=== PATIENT | male | born 1960 | race Caucasian/White ===

== ENCOUNTER 2019-07-23 11:53 | Observation (INO) | payer BC ==
[2019-07-22 12:47] LABS: BASOPHILS % 0.4 % (0.0-1.0); EOSINOPHILS % 0.2 % (0.0-6.0); HEMATOCRIT 45.1 % (38.2-49.6); HEMOGLOBIN 15.8 g/dL (14.0-18.0); LYMPHOCYTES # (AUTO) 1.8 (1.0-3.2); MEAN CORPUSCULAR VOLUME 94.2 fL (81-99); MONOCYTES # (AUTO) 0.9 (0.2-0.8); MONOCYTES % 9.1 % (4.4-11.3); NEUTROPHILS # (AUTO) 7.2 (2.1-6.9); NEUTROPHILS % 71.4 % (38.7-80.0); PLATELET COUNT 216 x10e3/uL (140-360); RED BLOOD COUNT 4.79 x10e6/uL (4.3-5.7); RED CELL DISTRIBUTION WIDTH 13.3 % (11.7-14.4)
[2019-07-22 12:55] LABS: INR 0.97; PARTIAL THROMBOPLASTIN TIME 26.9 seconds (23.8-35.5); PROTHROMBIN TIME 13.4 seconds (11.9-14.5)
[2019-07-22 12:59] LABS: BLOOD UREA NITROGEN 29 mg/dL (7-26); BUN/CREATININE RATIO 35 (6-25); CALCIUM 9.4 mg/dL (8.4-10.2); CARBON DIOXIDE 23 mmol/L (22-29); CHLORIDE 106 mmol/L (98-107); CREATININE, SERUM 0.84 mg/dL (0.72-1.25); EST GLOMERULAR FILTRATION RATE > 60 ML/MIN (60-); GLUCOSE 104 mg/dL (74-118); SODIUM 136 mmol/L (136-145)
--- NOTE | 2019-07-22 13:27 | Diagnostic Imaging Report ---
EXAMINATION: CHEST 2 VIEWS INDICATION: Pre-operative COMPARISON: None FINDINGS: LINES/TUBES:None LUNGS:The lungs are well-inflated. No focal consolidation or pulmonary edema. PLEURA:No pleural effusion or pneumothorax. MEDIASTINUM:The cardiomediastinal silhouette appears normal in size and shape. BONES/SOFT TISSUES:No acute osseous injury. ABDOMEN:No free air under the diaphragm. IMPRESSION: No focal pneumonia or pulmonary edema. Signed by: Joshua Mon MD on 07/22/2019 1:23 PM
[~2019-07-23] VITALS: Ht 193 cm; Wt 109.8 kg
[~2019-07-23 11:53] MED LIST: ACETAMINOPHEN 1000 MG/100 ML 100 ML IV ONE; ASPIR 8181 MG PO; BACITRACIN 50,000 UNIT VIAL ONE; BUPIVACAINE 0.5%/EPI 30 ML SDV INJ ONE; BUPROPION HCL75 MG PO; CO Q-10100 MG PO; CRESTOR10 MG PO; CYMBALTA30 MG PO; FISH OIL 1,0001 EAC2 PO; GABAPENTIN300 MG PO; IBUPROFEN 800MG/ 250ML 250 ML IV ONE; LIDOCAINE HCL (LTA) 4 ML SOLN ONE; LISINOPRIL10 MG PO; NAPROXEN250 MG PO; THROMBIN FOR SOLN 5,000 UNIT VIAL ONE; TIZANIDINE HCL4 MG PO; TYLENOL PO; ULTRAM 50MG50 MG PO; VANCOMYCIN 1GM/NS 250 ML 250 ML ONE
--- OUTSIDE RECORDS SUMMARY | 2019-07-23 11:58 | XMS REPORT ---
Author Author [facility] Address Unknown Phone Unavailable Care Team Providers Care Boatbuilder Supervisor Name Role Phone EMELIA MARLOW Unavailable Unavailable Myron HERNANDEZ Unavailable Unavailable Problems This patient has no known problems. Allergies, Adverse Reactions, Alerts This patient has no known allergies or adverse reactions. Medications This patient has no known medications. Results Test Description Test Time Test Comments Text Results Atomic Results Result Comments CHEST 2 VIEWS 2019-07-22 13:23:00 [facility] [address] [address] Patient Name: JES SUÁREZ MR #: [id number] : 1960 Age/Sex: 59/M Req #: [id number] Adm Physician: Ordered by: EMELIA MARLOW MD Report #: [id number] Location: OR Room/Bed: Procedure: [id number] DX/CHEST 2 VIEWS Exam Date: 07/22/19 Exam Time: 1300 REPORT STATUS: Signed EXAMINATION: CHEST 2 VIEWS INDICATION: Pre-operative COMPARISON: None FINDINGS: LINES/TUBES:None LUNGS:The lungs are well-inflated. No focal consolidation or pulmonary edema. PLEURA:No pleural effusion or pneumothorax. MEDIASTINUM:The cardiomediastinal silhouette appears normal in size and shape. BONES/SOFT TISSUES:No acute osseous injury. ABDOMEN:No free air under the diaphragm. IMPRESSION: No focal pneumonia or pulmonary edema. Signed by: Boby Coelho MD on 07/22/2019 1:23 PM Dictated By: BOBY COELHO MD 1323 Transcribed By: MARIA M Mendoza on 07/22/19 1323 COPY TO: EMELIA MARLOW MD Lipid Profile 2017-01-31 14:27:00 Cholesterol (test code=CHOL) 227 mg/dL 0-200 Triglycerides (test code=TRIG) 270 mg/dL 9-200 Unable to calculate, Trig >400 HDL (test code=HDL) 44 mg/dL 40-60 Chol/HDL (test code=CHOLPHDL) 5.2 Ratio 0.0-5.0 LDL, Calculated (test code=LDLC) 129 mg/dL 0-130 (NOTE)RISK OF HEART DISEASEPublished by [place] Heart AssociationAnalyte Optimal Boderline Increased RiskCHOL <200 200-239 >240TRIG <150 150- 199 >200HDL Male: >60 <40HDL Female: >60 <50LDL <100 130-159 >160LDL NEAR OPTIMAL IS 100-129 VLDL (test code=VLDL) 54 mg/dL 5-40 LDL/HDL (test code=LDLPHDL) 3 Comprehensive Metabolic [id number] 14:27:00* Test Item Value Reference Range Comments Sodium (test code=NA) 140 mmol/L 135-145 Potassium (test code=K) 3.8 mmol/L 3.5-5.1 Chloride (test code=CL) 99 mmol/L 98-105 Carbon Dioxide (test code=CO2) 25 mmol/L 22-29 Glucose (test code=GLU) 105 mg/dL 70-115 Blood Urea Nitrogen (test code=BUN) 19 mg/dL 6-20 Creatinine (test code=CREAT) 0.8 mg/dL 0.7-1.2 Calcium (test code=CA) 9.3 mg/dL 8.3-10.5 Prot Total (test code=TP) 7.1 g/dL 6.4-8.3 Albumin (test code=ALB) 4.5 g/dL 3.5-5.2 A/G Ratio (test code=AGRATIO) 1.7 Ratio Globulin (test code=GLOB) 2.6 2.9-3.1 Bili Total (test code=TBIL) 0.5 mg/dL 0.1-0.9 Alk Phos (test code=APHOS) 86 U/L 40-129 AST (test code=AST) 11 U/L 1-40 ALT (test code=ALT) 11 U/L 1-41 BUN/Creatinine Ratio (test code=BCRATIO) 23.8 Anion Gap (test code=AGAP) 16 mmol/L 7-16 Estimated GFR (test code=GFR) >60 mL/min/1.73m2 eGFR (estimated Glomerular Filtration Rate) is an estimated value,calculated from the patient's serum creatinine using the MDRD equation.It is NOT the patient's actual GFR. The eGFR provides a more clinicallyuseful measure of kidney disease than serum creatinine alone.This calculation takes sex and race into account, if the informationis provided. If the race is not provided, and the patient isAfrican-[place]ic, multiply by 1.212. If sex is not provided, and thepatient is female, multiply by 0.742. Results for patients <18 years ofage have not been validated by the MDRD study and should be interpretedwith caution.eGFR Result Interpretation:eGFR > or=60 is in the Normal RangeeGFR < 60 may mean kidney diseaseeGFR < 15 may mean kidney failureRanges recommended by the National Kidney Foundat ion,http://nkdep.nih.gov CBC with [id number] 14:14:00* Test Item Value Reference Range Comments WBC (test code=WBC) 10.2 K/cumm 4.4-10.5 RBC (test code=RBC) 5.59 M/cumm 4.10-5.70 Hemoglobin (test code=HGB) 17.0 gm/dL 13.4-17.4 Hematocrit (test code=HCT) 53.0 % 38.7-52.0 MCV (test code=MCV) 94.8 fL 80-100 MCH (test code=MCH) 30.5 pg 27.0-32.5 MCHC (test code=MCHC) 32.1 g/dL 32.0-37.5 RDW (test code=RDW) 13.9 % 11.5-14.5 Platelet Count (test code=PLTCT) 200 K/cumm 140-440 MPV (test code=MPV) 7.7 fL Diff Method (test code=DIFFM) Auto Neutrophil (test code=NEUT) 71.5 % 36-70 Lymphocyte (test code=LYMPH) 19.5 % 12-44 Monocyte (test code=MONO) 7.8 % 0-11 Eosinophil (test code=EOS) 0.7 % 0-7 Basophil (test code=BASO) 0.6 % 0-2 Neutro Abs (test code=ANEUT) 7.3 K/cumm 1.6-7.4 Lymph Abs (test code=ALYMPH) 2.0 K/cumm 0.5-4.6 Toole Abs (test code=AMONO) 0.8 K/cumm 0.0-1.2 Eos Abs (test code=AEOS) 0.07 K/cumm 0.00-0.74 Baso Abs (test code=ABASO) 0.1 K/cumm 0.00-0.21 Urinalysis [id number] 14:14:00* Test Item Value Reference Range Comments Color (test code=COLOR) Yellow Yellow,Straw,Pl yellow Clarity (test code=CLAR) Clear Clear Specific Newell (test code=SPGR) 1.025 1.001-1.035 pH (test code=PH) 5.0 5.0-9.0 Ketone (test code=KET) Negative mg/dL Negative Glucose (test code=GLUCUR) Negative mg/dL Negative Protein (test code=PROT) Negative mg/dL Negative Bilirubin (test code=BILI) Negative mg/dL Negative Occult Blood (test code=UDOB) Negative Negative Urobilinogen (test code=UROB) 0.2 mg/dL 0.2-1.0 Nitrite (test code=NIT) Negative Negative Leuk Esterase (test code=LEUK) Negative Negative Micros Exam (test code=MEXAM) Not indicated Prothrombin [id number] 14:03:00* Test Item Value Reference Range Comments PT (test code=PT) 11.90 seconds 9.78-13.35 INR (test code=INR) 1.05 Ratio 0.6-1.2 Partial Thromboplastin [id number] 14:03:00* Test Item Value Reference Range Comments aPTT (test code=PTT) 26.40 seconds 24.39-37.25
--- OUTSIDE RECORDS SUMMARY | 2019-07-23 11:58 | XMS REPORT | Summary of Care ---
Author Author SAM MAURO M.D. Organization Unknown Address Unknown Phone Unavailable Care Team Providers Care Junior Technical Writer Name Role Phone SAM MAURO M.D. Unavailable Unavailable ZUNILDA DIAZ SC, SAM Hutchinson Unavailable Unavailable DAVID DIAZ SC, JESSIE RAZA Unavailable Unavailable Unavailable Unavailable Functional Status Name Dates Details Functional status health issues are not documented Status: Name Dates Details Cognitive status health issues are not documented Status: Problems Name Dates Details Hypercholesterolemia (272.0, E78.00) Status: Active Chronic pain (338.29, G89.29) Status: Active Need for pneumococcal vaccination (V03.82, Z23) Status: Active Essential hypertension (401.9, I10) Status: Active Orthostatic dizziness (780.4, R42) Status: Active Depression (311, F32.9) Status: Active Medications Name Dates Details Lisinopril 10 MG Oral Tablet TAKE 1/2 TABLET DAILY. Quantity: 90 SAM MAURO M.D. Active traMADol HCl - 50 MG Oral Tablet TAKE 1 TABLET EVERY 6 HOURS as needed * Refills: 0 Active Aspirin 81 MG TABS TAKE 1 TABLET DAILY. * Refills: 0 Active Naproxen 500 MG Oral Tablet TAKE 1 TABLET EVERY 12 HOURS * Quantity: 14 Refills: 0 Active Gabapentin 300 MG Oral Capsule TAKE 1 CAPSULE 3 TIMES DAILY. * Refills: 0 Active Rosuvastatin Calcium 10 MG Oral Tablet TAKE 1 TABLET DAILY. * Quantity: 90 Refills: 1 SAM MAURO M.D. Active DULoxetine HCl - 60 MG Oral Capsule Delayed Release Particles TAKE ONE CAPSULE BY MOUTH DAILY IN THE MORNING. * Quantity: 30 Refills: 1 SAM MAURO M.D. Active Fish Oil CAPS TAKE 1 CAPSULE DAILY * Refills: 0 Active Tylenol Extra Strength 500 MG Oral Tablet TAKE 2 TABLETS 4 TIMES DAILY NEEDED * Refills: 0 Active Vitamin D TABS TAKE 1 TABLET DAILY * Refills: 0 Active buPROPion HCl ER (XL) 300 MG Oral Tablet Extended Release 24 Hour TAKE 1 TABLET DAILY DIRECTED * Quantity: 30 Refills: 3 SAM MAURO M.D. * Start : 18-Shabbir-2019 Active tiZANidine HCl - 4 MG Oral Capsule TAKE 1 CAPSULE AT BEDTIME- PRESCRIBED BY PAIN SPECIALIST * Refills: 0 Active Allergies and Adverse Reactions Name Dates Details aluminum hydroxide (Allergy) Status: Active Penicillins (Allergy) Status: Active Past Medical History Name Dates Details History of depression (V11.8, Z86.59) Status: Resolved History of Elevated glucose (790.29, R73.09) Status: Resolved History of hypertension (V12.59, Z86.79) Status: Resolved History of Low back pain with right-sided sciatica (724.3, M54.41) Status: Resolved History of Severe dehydration (276.51, E86.0) Status: Resolved History of Spinal stenosis, lumbar (724.02, M48.061) Status: Resolved Procedures Procedure Dates Details History of Laminectomy Lumbar Completed 19-Jan-2017 History of Bunionectomy Completed 21-Oct-2011 History of Tumor excision Completed Immunization Name Dates Details Tdap on: Oct-2009 Shingrix 50 MCG Intramuscular Suspension Reconstituted on: 21-Nov-2018 Shingrix 50 MCG Intramuscular Suspension Reconstituted on: 19-Jan-2019 Pneumococcal polysaccharide vaccine, 23 valent Lot #: [id number] on: 26-Mar-2019 Family History Name Dates Details Family history of malignant neoplasm of brain (V16.8, Z80.8) Status: Active Name Dates Details Family history of malignant neoplasm of ovary (V16.41, Z80.41) Status: Active Family history of hyperlipidemia (V18.19, Z83.438) Status: Active Family history of hypertension (V17.49, Z82.49) Status: Active Family history of cerebrovascular accident (CVA) (V17.1, Z82.3) Status: Active Name Dates Details Family history of lung cancer (V16.1, Z80.1) Status: Active Family history of hyperlipidemia (V18.19, Z83.438) Status: Active Family history of hypertension (V17.49, Z82.49) Status: Active Social History Name Dates Details - Status: Name Dates Details Never smoker Vital Signs Date Test Result Details [id number] BP Systolic 104 mm[Hg] Status: Comments: Location: LUE; Position: Sitting BP Diastolic 66 mm[Hg] Status: Comments: Location: LUE; Position: Sitting Physical Findings 9 Status: Comments: PHQ-9 Adult Depression Screening Height 75 in Status: Weight 243.7 lb Status: Body Mass Index Calculated 30.46 kg/m2 Status: Body Surface Area Calculated 2.39 m2 Status: Temperature 98.3 f Status: Comments: Method: Oral Heart Rate 82 /min Status: Respiration Rate 16 /min Status: Results Date Description Value Details Results not documented Plan of Care Name Dates Details Planned Observations Planned Goals not documented Planned Encounters Follow-up visit in 3 months Appointment; SAM MAURO M.D. On: 07-Sep-2019 16:00 Interventions Provided Plan* Decrease lisinopril to 5 mg per day; continue all other medications same. RTC in three months. Instructions Name Dates Details Instructions not documented Encounters Appointment; SAM MAURO M.D. Encounter Diagnosis: Problem not documented On: 26-Mar-2019 9:30 Appointment; SAM MAURO M.D. Encounter Diagnosis: Problem not documented On: 07-May-2019 15:30 Appointment; SAM MAURO M.D. Encounter Diagnosis: Problem not documented On: 08-Jun-2019 15:30
[2019-07-23] MEDS ORDERED: SUGAMMADEX SODIUM 200 MG/2 ML VIAL IV ONE (13:38)
[2019-07-23] MEDS ORDERED: DEXAMETHASONE SOD PHOS INJ 4 MG/ML VIAL ONE (13:45)
[2019-07-23] MEDS ORDERED: SEVOFLURANE INHAL SOLN 250 ML PEN BTL ONE (13:45)
[2019-07-23] MEDS ORDERED: LIDOCAINE HCL 2% JELLY 5 ML TUBE ONE (13:45)
[2019-07-23] MEDS ORDERED: ONDANSETRON HCL INJ 2MG/ML 2ML 2 MG/ML VIAL ONE (13:45)
[2019-07-23] MEDS ORDERED: NEOSTIGMINE 5 MG/5ML SYR ONE (13:45)
[2019-07-23] MEDS ORDERED: LIDOCAINE HCL 2% LOCAL INJ 5 ML SDV VIAL INJ ONE (13:45)
[2019-07-23] MEDS ORDERED: PROPOFOL IV EMULSION 10 MG/ML 20 ML VIAL ONE (13:45)
[2019-07-23] MEDS ORDERED: GLYCOPYRROLATE INJ 1MG/ 5 ML SYR ONE (13:45)
[2019-07-23] MEDS ORDERED: ROCURONIUM BROMIDE 10 MG/ML 5ML VIAL ONE (13:45)
[2019-07-23] MEDS ORDERED: PROMETHAZINE HCL (IM) 25 MG/ML VIAL IM PRN (14:00)
[2019-07-23] MEDS ORDERED: ZOLPIDEM TARTRATE 5 MG TAB PO PRN (14:00)
[2019-07-23] MEDS ORDERED: CEPACOL SORE THROAT LOZENGES PO PRN (14:00)
[2019-07-23] MEDS ORDERED: ACETAMINOPHEN 325 MG TAB PO PRN (14:00)
[2019-07-23] MEDS ORDERED: MORPHINE SULFATE INJ 4 MG/ML INJ 1ML IM PRN (14:00)
[2019-07-23] MEDS ORDERED: ONDANSETRON HCL INJ 2MG/ML 2ML 2 MG/ML VIAL IV PRN (14:00)
[2019-07-23] MEDS ORDERED: MAGNESIUM/ALUMINUM/SIMETHICONE 30 ML UDC PO PRN (14:00)
[2019-07-23] MEDS ORDERED: HYDROMORPHONE 2MG/ML 2 MG/ML ML IV PRN (14:00)
[2019-07-23] MEDS ORDERED: CARISOPRODOL 350 MG TAB PO PRN (14:00)
[2019-07-23] MEDS ORDERED: FENTANYL CITRATE/PF 100MCG/2 ML INJ ONE ×2 (14:56→19:43)
[2019-07-23] MEDS: GABAPENTIN 300 MG CAP PO SCH ×2 (15:00→21:08)
[2019-07-23] MEDS: LACTATED RINGER'S 1,000 ML IV SCH ×2 (15:20→22:10)
[2019-07-23 16:40] VITALS: BP 137/86
[2019-07-23 18:00] VITALS: BP 137/86
[2019-07-23] MEDS: OXYCODONE/ACETAMINOPHEN 5-325 1 EACH TABLET PO PRN (18:05)
[2019-07-23] MEDS: NAPROXEN 250 MG TAB PO SCH (18:05)
[2019-07-23 18:18] VITALS: BP 137/86
--- NOTE | 2019-07-23 19:17 | NUR ---
WALKING ROUNDS PERFORMED, RECEIVED PT LAYING SEMI FOWLERS IN BED, AAOX3, RR EVEN AND NON-LABORED, ON ROOM AIR. NO S/SX OF DISTRESS NOTED. DRESSING TO POSTERIOR BACK NOTED TO BE CDI. LEFT PT LAYING SEMI FOWLERS IN BED, BED IN LOW LOCKED POSITION, SIDE RAILS UPX2, CALL LIGHT AND PHONE WITHIN REACH.
[2019-07-23] MEDS ORDERED: MIDAZOLAM HCL 2 MG/2 ML VIAL ONE (19:43)
[2019-07-23 20:00] VITALS: BP 142/84
--- NOTE | 2019-07-23 20:06 | NUR ---
PT AMBULATING IN HERR WITH FAMILY AT SIDE. STEADY GAIT NOTED.
--- NOTE | 2019-07-23 20:13 | Operative Report ---
DATE OF PROCEDURE: 07/23/2019 SURGEON: Raulito Riley MD PREOPERATIVE DIAGNOSIS: Recurrent right L4-L5 disk herniation with severe right L5 radiculopathy, M51.16. POSTOPERATIVE DIAGNOSIS: Recurrent right L4-L5 disk herniation with severe right L5 radiculopathy, M51.16. PROCEDURES: Redo right L4-L5 laminotomy, medial facetectomy, and microsurgical diskectomy, [address]. ANESTHESIA: General. INDICATIONS: The patient is a 59-year-old man, who has previously undergone L4-L5 laminotomy and diskectomy by another surgeon in a couple of years ago. He now presents with a large recurrent L4-L5 disk herniation with severe L5 radiculopathy, refractory to extensive conservative treatment. He was in the operating room for redo microsurgical diskectomy. PROCEDURE IN DETAIL: After induction of general anesthesia, the patient was placed on the operating table in prone position over Malcolm frame. Lumbar region was prepped and draped in sterile fashion. A preoperative x-ray was obtained. A small midline incision was created overlying his previous incision scar. The lumbar fascia was opened to the right of midline and dissection was carried out to expose the L4 and L5 laminae and medial aspect of the facet joint and region of the previous laminotomy. The 2nd x-ray confirmed correct localization. The operating microscope was brought in. A curette was used to define precisely the superior and lateral margins of the previous L4 laminotomy. The L4 laminotomy was then extended slightly superiorly and laterally along the medial aspect of the facet joint. Using a high-speed drill equipped with a 4 mm mayte bur. The residual ligamentum flavum in this region was then resected to expose the virgin epidural plane, which was then followed inferiorly as the scar tissue adjacent to the dura was resected and the lateral margin of the dura and the L5 traversing nerve root were exposed. The herniated disk material immediately came into view under the nerve roots. The nerve root was carefully microdissected and mobilized with a #4 Addison instrument. At first anulus of the disk was incised lateral to the nerve root and the loose contents of the disk were evacuated with pituitary instruments. Micro ball probe was then passed into the ventral epidural space on the nerve root and used to retrieve the edge of the extruded disk material, which was then grasped with a micropituitary rongeur and delivered out as a large fragment of disk. This achieved immediate decompression of the L5 nerve root. A ball probe could then be passed in the ventral epidural space without encountering any resistance. Excellent decompression was thus achieved. The wound was copiously irrigated with bacitracin solution. Meticulous hemostasis was secured and a small piece of fat was harvested from the subcutaneous space and placed over the L5 nerve root. The wound was then closed in multiple layers with 0 and 2-0 Vicryl sutures. The skin was closed with 3-0 Monocryl sutures in subcuticular fashion. Steri-Strips and dressing were applied. The patient was awakened, extubated, and taken to postanesthesia care unit in stable condition. No intraoperative complications were encountered. No CSF leak was noted at any point in the operation. Estimated blood loss was 10 mL. Raulito Riley MD PP/STUART /[id number]
[2019-07-23 20:42] VITALS: BP 142/84
[2019-07-23] MEDS ORDERED: TIZANIDINE HCL 4 MG TAB PO SCH (21:00)
[2019-07-23] MEDS: VANCOMYCIN 1GM/NS 250 ML 250 ML IV SCH (23:50)
[2019-07-24] VITALS: BP 129/70
[2019-07-24 04:00] VITALS: BP 117/67
[2019-07-24] MEDS: LACTATED RINGER'S 1,000 ML IV SCH (04:25)
[2019-07-24] MEDS ORDERED: NORCO 7.5-3251 EACH PO (04:39)
[2019-07-24 08:12] VITALS: BP 118/67
[2019-07-24] MEDS ORDERED: TIZANIDINE HCL 4 MG TAB PO SCH ×2 (09:00→21:00)
[2019-07-24] MEDS ORDERED: BUPROPION HCL 75 MG TAB PO SCH (09:00)
[2019-07-24] MEDS ORDERED: LISINOPRIL 10 MG TAB PO SCH (09:00)
[2019-07-24] MEDS ORDERED: DULOXETINE HCL 30 MG DELAYED RELEASE PO SCH (09:00)
[2019-07-24 09:03] VITALS: BP 118/67
[2019-07-24] MEDS: GABAPENTIN 300 MG CAP PO SCH (09:03)
[2019-07-24] MEDS: NAPROXEN 250 MG TAB PO SCH (09:03)
[2019-07-24] MEDS: VANCOMYCIN 1GM/NS 250 ML 250 ML IV SCH (12:02)
[2019-07-24] MEDS: OXYCODONE/ACETAMINOPHEN 5-325 1 EACH TABLET PO PRN (12:02)
[2019-07-24 12:19] VITALS: BP 120/72
[2019-07-24] MEDS ORDERED: SIMVASTATIN 40 MG TAB PO SCH (21:00)
== END 2019-07-24 14:15 | disposition home or self-care (01) ==
LOC: OR 11:53 → PACU V 13:51 → MED/SURG 15:15
PROVIDERS: ADMIT Neurological Surgery; ATTEND Neurological Surgery
DX: M51.16 Intervertebral disc disorders with radiculopathy, lumbar region (principal); I10 Essential (primary) hypertension; Z86.73 Personal history of transient ischemic attack (TIA), and cerebral infarction without residual deficits; M19.90 Unspecified osteoarthritis, unspecified site; E78.5 Hyperlipidemia, unspecified; Z88.0 Allergy status to penicillin; Z91.018 Allergy to other foods; Z91.048 Other nonmedicinal substance allergy status; Z01.810 Encounter for preprocedural cardiovascular examination; Z01.812 Encounter for preprocedural laboratory examination; Z01.811 Encounter for preprocedural respiratory examination
CPT/HCPCS: 36415; 63042; 71046; 72020; 80048; 85025; 85610; 85730; 86850; 86900; 88304; 93005; G0378 ×2; J0131; J1100; J2001 ×2; J2250; J2405; J2704; J3010; J3370 ×2; J3490; J7121